=== PATIENT | female | born 1980 | race American Indian/Alaskan Native ===

== ENCOUNTER 2017-12-03 21:22 | Emergency (ER) | payer SELFPAY | END 2017-12-03 21:30 | disposition left against medical advice (07) | LOC: ED 21:22 | DX: R06.00 Dyspnea, unspecified (principal); R07.9 Chest pain, unspecified; Z53.21 Procedure and treatment not carried out due to patient leaving prior to being seen by health care provider ==

== ENCOUNTER 2021-01-05 17:37 | Emergency (ER) | payer SELFPAY ==
--- NOTE | 2021-01-05 17:57 | Emergency Department Report ---
HPI - General Time Seen by Provider: 01/05/21 17:45 - HPI HPI: Charge nurse triage/ The patient is a 40-year-old female present with a chief complaint of suicidal ideation. The patient was brought in by police after telling them she was going to kill himself. The patient was apparently pulled over after making a U-turn to circumvent a road block. During the encounter the patient was tearful and informed officer that she was going to kill herself. The patient states she is felt depressed and suicidal for "a while" indicating that is been months. Patient states she has had a suicide attempt years ago when she was a teenager has not attempted to hurt himself recently. Patient denies an active plan. The officer documents that the patient made statements such as "you do not understand my life." "I am wasting air," and says the patient stated she made up her mind and she was going to kill herself ED Past Medical Hx - Past Medical History Hx Psychiatric Treatment: Yes (Depression) - Surgical History Past Surgical History?: No - Family History Family history: no significant - Social History Smoking Status: Current Some Day Smoker Substance Use Type: Alcohol (Occasional) ED Review of Systems ROS: Stated complaint: SI Other details as noted in HPI Constitutional: no symptoms reported Eyes: denies: eye pain ENT: denies: throat pain Respiratory: no symptoms reported Cardiovascular: denies: chest pain Endocrine: no symptoms reported Gastrointestinal: denies: abdominal pain Genitourinary: denies: dysuria Musculoskeletal: denies: back pain Neurological: denies: headache Psychiatric: suicidal thoughts Physical Exam - Physical Exam Physical Exam: GENERAL: The patient is well-developed well-nourished female sitting on bench appearing very tearful HEENT: Normocephalic. Atraumatic. Extraocular motions are intact. Patient has moist mucous membranes. Tearful NECK: Supple. Trachea midline CHEST/LUNGS: Clear to auscultation. There is no respiratory distress noted. HEART/CARDIOVASCULAR: Regular. There is no tachycardia. There is no gallop rub or murmur. ABDOMEN: Abdomen is soft, nontender. Patient has normal bowel sounds. There is no abdominal distention. SKIN: There is no rash. There is no edema. There is no diaphoresis. NEURO: The patient is awake, alert, and oriented. The patient is cooperative. The patient has no focal neurologic deficits. The patient has normal speech MUSCULOSKELETAL: There is no evidence of acute injury. ED Medical Decision Making - Lab Data Result diagrams: 01/05/21 18:04 01/05/21 18:04 Laboratory Tests 01/05/21 01/05/21 01/05/21 18:04 18:04 18:04 WBC 8.4 RBC 4.81 Hgb 15.3 H Hct 44.0 H MCV 92 MCH 32 MCHC 35 H RDW 14.1 Plt Count 228 Lymph % (Auto) 20.5 Slope % (Auto) 6.1 Eos % (Auto) 1.0 Baso % (Auto) 0.5 Lymph # (Auto) 1.7 Slope # (Auto) 0.5 Eos # (Auto) 0.1 Baso # (Auto) 0.0 Seg Neutrophils % 71.9 H Seg Neutrophils # 6.0 Sodium 139 Potassium 3.5 L Chloride 104.3 Carbon Dioxide 26 Anion Gap 12 BUN 5 L Creatinine 0.7 Estimated GFR > 60 BUN/Creatinine Ratio 7 Glucose 97 Calcium 9.1 Total Bilirubin 0.80 AST 14 ALT 12 Alkaline Phosphatase 47 Total Protein 7.4 Albumin 4.8 Albumin/Globulin Ratio 1.8 HCG, Qual Urine Color Urine Turbidity Urine pH Ur Specific [place] Urine Protein Urine Glucose (UA) Urine Ketones Urine Blood Urine Nitrite Urine Bilirubin Urine Urobilinogen Ur Leukocyte Esterase Urine WBC (Auto) Urine RBC (Auto) Salicylates < 0.3 L Urine Opiates Screen Urine Methadone Screen Acetaminophen Ur Barbiturates Screen Ur Phencyclidine Scrn Ur Amphetamines Screen U Benzodiazepines Scrn Urine Cocaine Screen U Marijuana (THC) Screen Drugs of Abuse Note Plasma/Serum Alcohol 01/05/21 01/05/21 01/05/21 18:04 18:04 18:04 WBC RBC Hgb Hct MCV MCH MCHC RDW Plt Count Lymph % (Auto) Slope % (Auto) Eos % (Auto) Baso % (Auto) Lymph # (Auto) Slope # (Auto) Eos # (Auto) Baso # (Auto) Seg Neutrophils % Seg Neutrophils # Sodium Potassium Chloride Carbon Dioxide Anion Gap BUN Creatinine Estimated GFR BUN/Creatinine Ratio Glucose Calcium Total Bilirubin AST ALT Alkaline Phosphatase Total Protein Albumin Albumin/Globulin Ratio HCG, Qual Negative Urine Color Urine Turbidity Urine pH Ur Specific [place] Urine Protein Urine Glucose (UA) Urine Ketones Urine Blood Urine Nitrite Urine Bilirubin Urine Urobilinogen Ur Leukocyte Esterase Urine WBC (Auto) Urine RBC (Auto) Salicylates Urine Opiates Screen Urine Methadone Screen Acetaminophen 5.0 L Ur Barbiturates Screen Ur Phencyclidine Scrn Ur Amphetamines Screen U Benzodiazepines Scrn Urine Cocaine Screen U Marijuana (THC) Screen Drugs of Abuse Note Plasma/Serum Alcohol < 0.01 01/05/21 01/05/21 Unknown Unknown WBC RBC Hgb Hct MCV MCH MCHC RDW Plt Count Lymph % (Auto) Slope % (Auto) Eos % (Auto) Baso % (Auto) Lymph # (Auto) Slope # (Auto) Eos # (Auto) Baso # (Auto) Seg Neutrophils % Seg Neutrophils # Sodium Potassium Chloride Carbon Dioxide Anion Gap BUN Creatinine Estimated GFR BUN/Creatinine Ratio Glucose Calcium Total Bilirubin AST ALT Alkaline Phosphatase Total Protein Albumin Albumin/Globulin Ratio HCG, Qual Urine Color Straw Urine Turbidity Clear Urine pH 7.0 Ur Specific [place] 1.003 Urine Protein <15 mg/dl Urine Glucose (UA) Neg Urine Ketones Neg Urine Blood Neg Urine Nitrite Neg Urine Bilirubin Neg Urine Urobilinogen < 2.0 Ur Leukocyte Esterase Neg Urine WBC (Auto) < 1.0 Urine RBC (Auto) < 1.0 Salicylates Urine Opiates Screen Negative Urine Methadone Screen Negative Acetaminophen Ur Barbiturates Screen Negative Ur Phencyclidine Scrn Negative Ur Amphetamines Screen Negative U Benzodiazepines Scrn Negative Urine Cocaine Screen Negative U Marijuana (THC) Screen Positive Drugs of Abuse Note Disclamer Plasma/Serum Alcohol - Differential Diagnosis Suicidal ideation, depression Critical care attestation.: If time is entered above; I have spent that time in minutes in the direct care of this critically ill patient, excluding procedure time. ED Disposition Clinical Impression: Suicidal ideation Disposition: [id number]/TX-[id number] PSY HOSP/PSY UNIT Is pt being admited?: No Does the pt Need Aspirin: No Condition: Fair Referrals: PRIMARY CARE, [Primary Care Provider] - 3-5 Days Time of Disposition: 17:56 (Awaiting acceptance)
[2021-01-05 18:21] LABS: Basophils % (Auto) 0.5 % (0.0-1.8); Eosinophils # (Auto) 0.1 K/mm3 (0.0-0.4); Hemoglobin 15.3 gm/dl (10.1-14.3); Lymphocytes # (Auto) 1.7 K/mm3 (1.2-5.4); Lymphocytes % (Auto) 20.5 % (13.4-35.0); Mean Corpuscular HGB Conc 35 % (30-34); Mean Corpuscular Volume 92 fl (79-97); Monocytes # (Auto) 0.5 K/mm3 (0.0-0.8); Monocytes % (Auto) 6.1 % (0.0-7.3); Platelet Count 228 K/mm3 (140-440); Red Blood Count 4.81 M/mm3 (3.65-5.03); Red Cell Distribution Width 14.1 % (13.2-15.2)
[2021-01-05 18:22] LABS: Bilirubin,Urine NEG (Negative); Blood,Urine NEG (Negative); Color,Urine Straw (Yellow); Protein,Urine <15 mg/dL mg/dL (Negative); RBC,Urine < 1.0 /HPF (0.0-6.0); Urobilinogen,Urine < 2.0 mg/dL (<2.0); WBC,Urine < 1.0 /HPF (0.0-6.0)
[2021-01-05 18:29] LABS: Amphetamine Screen,Urine Negative; Benzodiazepines Screen,Urine Negative; Cocaine Screen,Urine Negative; Methadone Screen,Urine Negative; Opiate Screen,Urine Negative
[2021-01-05 18:41] LABS: Cannabinoid Screen,Urine Positive
[2021-01-05 18:44] LABS: Alanine Aminotransferase 12 units/L (7-56); Albumin 4.8 g/dL (3.9-5); Blood Urea Nitrogen 5 mg/dL (7-17); Calcium 9.1 mg/dL (8.4-10.2); Hemolysis Index 5
[2021-01-05 18:47] LABS: BUN/Creatinine Ratio 7
[2021-01-05] MEDS: POTASSIUM CHLORIDE ER 20 MEQ TAB PO ONE (20:10)
[2021-01-05] MEDS ORDERED: NICOTINE 14 MG/24 HR PATCH TD PRN (23:29)
[2021-01-05] MEDS ORDERED: LORazepam 1 MG TAB PO PRN (23:30)
[2021-01-06] MEDS: POTASSIUM CHLORIDE ER 20 MEQ TAB PO ONE (03:15)
--- NOTE | 2021-01-06 08:41 | Consultation ---
History of Present Illness - Reason for Consult Consult date: 01/06/21 Reason for consult: MHE Requesting physician: JESUS POLLOCK - History of Present Psychiatric Illness Per ED Provider: The patient is a 40-year-old female present with a chief complaint of suicidal ideation. The patient was brought in by police after telling them she was going to kill himself. The patient was apparently pulled over after making a U-turn to circumvent a road block. During the encounter the patient was tearful and informed officer that she was going to kill herself. The patient states she is felt depressed and suicidal for "a while" indicating that is been months. Patient states she has had a suicide attempt years ago whe n she was a teenager has not attempted to hurt himself recently. Patient denies an active plan. The officer documents that the patient made statements such as "you do not understand my life." "I am wasting air," and says the patient stated she made up her mind and she was going to kill herself'. PSYCH HPI Patient is a 40-year-old single, employed -[place] female who currently lives with self with past psychiatric history of anxiety and depression in teenage years and no significant past medical history who presented to the ED accompanied by police with complaint of wanting to kill self. Patient reports she was unable to walk, driving and then she saw that an accident at having a head gas desulfurizer U-turn was pulled over by the police. Patient reports she was given 3 taken by the police, and she was already going through a lot of financial stress, job instability and the ambulance was also called to the scene which she believes was cannot be an extra at a cost compounding to emotional or financial grieving situation. So she was feeling overwhelmed by the sudden situation and financial stress that she just told shes feeling like kill he rself. Patient states she does not want to kill herself, even been here is making her stressed cause she is afraid of loosiing her job since since they dont know whats happening to her. Today she endorses a good stable mood. Patient eats and sleeps well. Patient denies panic attacks, recurrent nightmares or flashbacks. Patient denies symptoms suggestive of OCD or PTSD. Patient denies hallucinations, paranoia, thought interference and no features suggestive of hypomania or camron. Patiently completely denies suicidal or homicidal thoughts. PAST PSYCHIATRIC HISTORY Diagnoses: Depression and Anxiety Suicide attempts or Self-harm behavior: Yes at teenage years Prior psychiatric hospitalizations: None reported Substance Abuse history: None reported Previous psychiatric medications tried: none reported Outpatient treatment: none reported PAST MEDICAL HISTORY: none reported Family Psychiatric History: None reported or documented SOCIAL HISTORY Marital Status: Single Living Arrangements: With self Employment Status: Employed Access to guns/weapons: None report Education: College dropout History of Abuse: None reported Legal History: None reported REVIEW OF SYSTEMS Constitutional: Negative for weight loss ENT: Negative for stridor Respiratory: Negative for cough or hemoptysis All other systems reviewed and are negative MENTAL STATUS EXAMINATION General Appearance and Behavior: Age appropriate, good hygiene, wearing appropri ate clothes, good eye contact, cooperative polite with questioning. Cooperation: Participating/engaged Psychomotor Behavior: unremarkable and within normal limits Mood: Good Affect and affective range: congruent with mood Thought Process: Fluent/Logical, Thought Content: Within reality, Speech: Normal volume, Regular rate and rhythm, Intellectual Functioning: Average Suicidal Ideation: Denies SI Homicidal Ideation: Denies HI Impulse Control: Unimpaired Insight and Judgment: Normal insight and judgment, Memory: Normal, Attention: Normal, Orientation: Alert, oriented, Assessment and Plan - Psychiatric problem (1) Acute stress disorder Current Visit: Yes Status: Acute Treatment Plan MEDICATIONS: Risks, benefits and alternatives of medications discussed with the patient, cherelle lehman answered and consent obtained from patient. PSYCHOTHERAPY: Supportive psychotherapy provided MEDICAL: Per primary team DELIRIUM PRECAUTIONS: Please re-orient patient frequently, keep lights on during the day, and minimize benzodiazepines and opiates as these medications could worsen patient's confusion. SENIOR PHP DEVELOPER: DISPOSITION: Do Not Recommend acute inpatient psychiatric hospitalization at this time. Case discussed with Dr. Almeida who agrees with current disposition LEGAL STATUS: 1013 rescinded FOLLOW-UP: Will sign off Thank you for the consult. Please contact with any questions and/or concerns. Medications and Allergies Allergies Allergy/AdvReac Type Severity Reaction Status Date / Time No Known Allergies Allergy Unverified 01/06/21 02:58 Active Meds: Active Medications Lorazepam (Lorazepam 1 Mg Tab) 0.5 mg PO BID PRN PRN Reason: Agitation Nicotine (Nicotine 14 Mg/24 Hr Patch) 14 mg TD QDAY PRN PRN Reason: Agitation Stop: 01/08/21 23:00 Last Admin: 01/06/21 03:17 Dose: 14 mg Documented by: Mental Status Exam - Vital signs Last Vital Signs Temp 98.3 F 01/06/21 02:55 Pulse 78 01/06/21 02:55 Resp 16 01/06/21 02:55 BP 124/73 01/06/21 02:55 Pulse Ox 99 01/06/21 02:55 Results Result Diagrams: 01/05/21 18:04 01/05/21 18:04 Abnormal lab results 01/05/21 01/05/21 01/05/21 Range/Units 18:04 18:04 18:04 Hgb 15.3 H (10.1-14.3) gm/dl Hct 44.0 H (30.3-42.9) % MCHC 35 H (30-34) % Seg Neutrophils % 71.9 H (40.0-70.0) % Potassium 3.5 L (3.6-5.0) mmol/L BUN 5 L (7-17) mg/dL Salicylates < 0.3 L (2.8-20.0) mg/dL Acetaminophen (10.0-30.0) ug/mL 01/05/21 Range/Units 18:04 Hgb (10.1-14.3) gm/dl Hct (30.3-42.9) % MCHC (30-34) % Seg Neutrophils % (40.0-70.0) % Potassium (3.6-5.0) mmol/L BUN (7-17) mg/dL Salicylates (2.8-20.0) mg/dL Acetaminophen 5.0 L (10.0-30.0) ug/mL All other labs normal. Assessment and Plan - Psychiatric problem (1) Acute stress disorder Current Visit: Yes Status: Acute
[2021-01-06 09:08] VITALS: BP 120/65
== END 2021-01-06 13:47 ==
LOC: ED 17:37
DX: R45.851 Suicidal ideations (principal); F32.9 Major depressive disorder, single episode, unspecified; F17.200 Nicotine dependence, unspecified, uncomplicated; Z20.822 Contact with and (suspected) exposure to COVID-19
CPT/HCPCS: 36415; 80053; 80307; 81001; 84703; 85025; 99284; U0003; 80320; G0480